=== PATIENT | male | born 1975 | race Caucasian/White ===

== ENCOUNTER → 2017-07-18 14:24 | Outpatient (CLI) | payer OTHER, SELFPAY ==
--- NOTE | 2017-07-16 | LES_PTH ---
PATIENT: BRYAN BRAY LOC: [facility] U#:[id number] AGE/SX: 49/M ROOM: RE07/18/[address]: Dr. Jesus Mercado MD : 1975 BED: DIS: SPEC #: [id number] RECD: 07/18/17 11:55 STATUS: GUZMAN DAVIS #: [id number] NAYAN: 07/16/17 00:[address]: Jesus Mercado DEPT: SURGICAL PATHOLOGY RECD BY: Shauna Lira Tissues: Skin of scalp, NOS Procedures: Surgery Specimen Level IV HEADER OPERATION: Shave biopsy right posterior parietal scalp PRE-OP DIAGNOSIS: Basal cell carcinoma vs benign nevus TISSUE SUBMITTED: Right posterior partial scalp MICROSCOPIC DIAGNOSIS Skin of right posterior scalp, shave biopsy: Basal cell carcinoma. AM:vineet 07/19/17 COMMENT The lesion extends to the deep margin of excision. Clinical correlation is suggested. Case has been reviewed in consultation with Dr. Boateng who concurs with the above diagnosis. IDC:SJ MICROSCOPIC DESCRIPTION Slides are reviewed. GROSS DESCRIPTION Received in fixative is one container labeled with the patient's name and designated posterior parietal scalp. The specimen consists of a discoid fragment of light griffin shave biopsy of hair bearing skin measuring 0.5 x 0.2 x <0.1 cm. The specimen is totally submitted in one cassette. / AM:vineet 07/18/17 TC:0 CPT: 23246
== END ==
PROVIDERS: Visit Provider Dermatology
DX: D48.5 Neoplasm of uncertain behavior of skin (principal)
CPT/HCPCS: 88305

== ENCOUNTER → 2018-05-10 06:16 | Outpatient (CLI) | payer OTHER, SELFPAY ==
[2018-05-10 07:34] LABS: Absolute Lymphocyte Count 1.85 X10^3/ul (0.83-4.51); Absolute Neutrophil Count 2.8 X10^3/uL (2.0-7.7); Basophil# 0.02 X10^3/uL; Basophil% 0.4 % (0-1); Eosinophil# 0.12 X10^3/uL; Eosinophils% 2.3 % (0-5); Hematocrit 43.6 % (40-54); Hemoglobin 14.7 g/dl (13.0-16.5); Lymphocyte # 1.85 X10^3/ul (4.0); Lymphocyte % 35.4 % (19-41); Mean Corp Hgb Conc 33.7 g/gl (32-36); Mean Corpuscular Hgb 31.3 pg (27.0-32.0); Mean Corpuscular Volume 92.8 fL (80-94); Mean Platelet Vol. 10.5 fl (6.2-12.0); Monocyte# 0.45 X10^3/uL; Monocyte% 8.6 % (0-10); Neutrophil # 2.78 X10^3/uL (2.7-7.7); Neutrophil % 53.3 % (47-70); Platelet Count 181 K/mm3 (150-450); RBC Distribution Width CV 12.2 % (11.6-14.6); RBC Distribution Width SD 41.3 fl (35.1-43.9); White Blood Count 5.2 K/mm3 (4.4-11.0)
[2018-05-10 07:35] LABS: POSITIVE COUNT NO; POSITIVE DIFFERENTIAL NO; POSITIVE MORPHOLOGY NO
[2018-05-10 07:56] LABS: ALB/GLOB Ratio 1.3 RATIO (0.9-2.4); AST(SGOT) 29 U/L (15-37); Alanine Aminotransfer ALT/SGPT 39 U/L (16-61); Albumin, Serum 3.9 g/dL (3.2-5.0); Alkaline Phosphatase 72 U/L (45-117); Anion Gap 6 (5-15); BUN 21 mg/dL (7-18); BUN/Creat Ratio 15.9 RATIO (10-20); Calcium,Total 8.6 mg/dL (8.5-10.1); Chloride 108 mmol/L (98-107); Cholesterol 139 mg/dL (200); Creatinine, Serum 1.32 mg/dL (0.70-1.30); EST Glomerular Filtration Rate 63 mL/min (>60); Est Glom Filt Rate - Afr Amer 77 mL/min (>60); Globulin 3.1 g/dL (2.2-4.2); Glucose 96 mg/dL (74-106); High Density Lipoprotein 35 mg/dL; Potassium 4.3 mmol/L (3.5-5.1); Sodium Level 141 mmol/L (136-145); Triglycerides 179 mg/dL; Very Low Density Lipoprotein 36 mg/dL (5-40)
== END ==
PROVIDERS: Family Provider Family Medicine; PCP Family Medicine; Referring Provider Family Medicine; Visit Provider Family Medicine
DX: Z00.00 Encounter for general adult medical examination without abnormal findings (principal)
CPT/HCPCS: 36415; 80053; 80061; 85025

== ENCOUNTER → 2018-10-17 08:21 | Outpatient (CLI) | payer SELFPAY | PROVIDERS: Family Provider Family Medicine; PCP Family Medicine; Referring Provider Nurse Practitioner Acute Care; Visit Provider Nurse Practitioner Acute Care | DX: E66.9 Obesity, unspecified (principal) | CPT/HCPCS: 74249 ==

== ENCOUNTER → 2019-04-17 11:37 | Outpatient (CLI) | payer SELFPAY | PROVIDERS: Family Provider Family Medicine; PCP Family Medicine; Referring Provider Nurse Practitioner Acute Care; Visit Provider Nurse Practitioner Acute Care | DX: Z09 Encounter for follow-up examination after completed treatment for conditions other than malignant neoplasm (principal) ==

== ENCOUNTER → 2019-05-23 06:26 | Outpatient (CLI) | payer OTHER, SELFPAY ==
[2018-10-07 11:20] VITALS: BMI 33.3
[2019-05-23 08:17] LABS: Absolute Lymphocyte Count 1.79 X10^3/uL (0.83-4.51); Absolute Neutrophil Count 2.3 X10^3/uL (2.0-7.7); Basophil# 0.03 X10^3/uL; Basophil% 0.6 % (0-1); Eosinophil# 0.11 X10^3/uL; Eosinophils% 2.3 % (0-5); Hematocrit 44.9 % (40-54); Hemoglobin 15.4 g/dL (13.0-16.5); Lymphocyte # 1.79 X10^3/ul (4.0); Lymphocyte % 36.8 % (19-41); Mean Corp Hgb Conc 34.3 g/dL (32-36); Mean Corpuscular Hgb 31.8 pg (27.0-32.0); Mean Corpuscular Volume 92.6 fL (80-94); Mean Platelet Vol. 10.7 fl (6.2-12.0); Monocyte# 0.59 X10^3/uL; Monocyte% 12.1 % (0-10); NRBC Flagged by Analyzer 0 % (0-5); Neutrophil # 2.32 X10^3/uL (2.7-7.7); Neutrophil % 47.8 % (47-70); Platelet Count 180 K/mm3 (150-450); RBC Distribution Width CV 11.9 % (11.6-14.6); RBC Distribution Width SD 40.7 fl (35.1-43.9); Red Blood Count 4.85 M/mm3 (4.6-6.2); White Blood Count 4.9 K/mm3 (4.4-11.0)
[2019-05-23 08:47] LABS: ALB/GLOB Ratio 1.2 RATIO (0.9-2.4); AST(SGOT) 28 U/L (15-37); Alanine Aminotransfer ALT/SGPT 48 U/L (16-61); Alkaline Phosphatase 71 U/L (45-117); Anion Gap 3 (5-15); BUN 18 mg/dL (7-18); BUN/Creat Ratio 14.2 RATIO (10-20); Calcium,Total 8.8 mg/dL (8.5-10.1); Chloride 106 mmol/L (98-107); Cholesterol 190 mg/dL (200); Creatinine, Serum 1.27 mg/dL (0.70-1.30); EST Glomerular Filtration Rate 66 mL/min (>60); Est Glom Filt Rate - Afr Amer 80 mL/min (>60); Globulin 3.3 g/dL (2.2-4.2); Glucose 88 mg/dL (74-106); High Density Lipoprotein 47 mg/dL; Potassium 4.2 mmol/L (3.5-5.1); Protein, Total 7.3 g/dL (6.4-8.2); Sodium Level 139 mmol/L (136-145); Triglycerides 149 mg/dL; Very Low Density Lipoprotein 30 mg/dL (5-40)
== END ==
PROVIDERS: Family Provider Family Medicine; PCP Family Medicine; Referring Provider Family Medicine; Visit Provider Family Medicine
DX: Z00.00 Encounter for general adult medical examination without abnormal findings (principal)
CPT/HCPCS: 36415; 80053; 80061; 85025

== ENCOUNTER → 2020-09-15 06:26 | Outpatient (CLI) | payer OTHER, SELFPAY ==
[2018-10-07 11:20] VITALS: BMI 33.3
[2020-09-15 07:17] LABS: Absolute Lymphocyte Count 1.76 X10^3/uL (0.83-4.51); Absolute Neutrophil Count 2.8 X10^3/uL (2.0-7.7); Basophil# 0.03 X10^3/uL; Basophil% 0.6 % (0-1); Eosinophils% 1.9 % (0-5); Hematocrit 46.1 % (40-54); Hemoglobin 15.6 g/dL (13.0-16.5); Lymphocyte # 1.76 X10^3/ul (4.0); Mean Corp Hgb Conc 33.8 g/dL (32-36); Mean Corpuscular Hgb 31.4 pg (27.0-32.0); Mean Corpuscular Volume 92.8 fL (80-94); Mean Platelet Vol. 10.8 fl (6.2-12.0); Monocyte# 0.63 X10^3/uL; Monocyte% 11.8 % (0-10); NRBC Flagged by Analyzer 0 % (0-5); Neutrophil # 2.81 X10^3/uL (2.7-7.7); Neutrophil % 52.5 % (47-70); Platelet Count 185 K/mm3 (150-450); RBC Distribution Width CV 11.9 % (11.6-14.6); RBC Distribution Width SD 40.8 fl (35.1-43.9); Red Blood Count 4.97 M/mm3 (4.6-6.2); White Blood Count 5.3 K/mm3 (4.4-11.0)
[2020-09-15 07:35] LABS: ALB/GLOB Ratio 1.2 RATIO (0.9-2.4); AST(SGOT) 28 U/L (15-37); Alanine Aminotransfer ALT/SGPT 69 U/L (16-61); Albumin, Serum 4.1 g/dL (3.2-5.0); Alkaline Phosphatase 63 U/L (45-117); Anion Gap 0 (5-15); BUN 29 mg/dL (7-18); BUN/Creat Ratio 19.6 RATIO (10-20); Calcium,Total 8.8 mg/dL (8.5-10.1); Chloride 105 mmol/L (98-107); Cholesterol 207 mg/dL (200); Creatinine, Serum 1.48 mg/dL (0.70-1.30); EST Glomerular Filtration Rate 55 mL/min (>60); Est Glom Filt Rate - Afr Amer 66 mL/min (>60); Globulin 3.5 g/dL (2.2-4.2); Glucose 89 mg/dL (74-106); High Density Lipoprotein 42 mg/dL; Potassium 4.1 mmol/L (3.5-5.1); Protein, Total 7.6 g/dL (6.4-8.2); Sodium Level 137 mmol/L (136-145); Triglycerides 143 mg/dL; Very Low Density Lipoprotein 29 mg/dL (5-40)
== END ==
PROVIDERS: PCP Family Medicine; Referring Provider Family Medicine; Visit Provider Family Medicine
DX: Z00.00 Encounter for general adult medical examination without abnormal findings (principal); E78.5 Hyperlipidemia, unspecified; R79.89 Other specified abnormal findings of blood chemistry
CPT/HCPCS: 36415; 80053; 80061; 85025

== ENCOUNTER → 2021-09-20 | Outpatient (CLI) | payer OTHER, SELFPAY ==
[2021-09-20 07:07] LABS: Absolute Neutrophil Count 2.7 X10^3/uL (2.0-7.7); Basophil# 0.01 X10^3/uL; Basophil% 0.2 % (0-1); Eosinophil# 0.12 X10^3/uL; Eosinophils% 2.4 % (0-5); Hematocrit 43.8 % (40-54); Hemoglobin 15.3 g/dL (13.0-16.5); Lymphocyte % 32.4 % (19-41); Mean Corp Hgb Conc 34.9 g/dL (32-36); Mean Corpuscular Hgb 31.7 pg (27.0-32.0); Mean Corpuscular Volume 90.7 fL (80-94); Mean Platelet Vol. 10.3 fl (6.2-12.0); Monocyte# 0.55 X10^3/uL; Monocyte% 11.1 % (0-10); NRBC Flagged by Analyzer 0 % (0-5); Neutrophil # 2.65 X10^3/uL (2.7-7.7); Neutrophil % 53.7 % (47-70); Platelet Count 175 K/mm3 (150-450); RBC Distribution Width CV 11.8 % (11.6-14.6); RBC Distribution Width SD 39.1 fl (35.1-43.9); Red Blood Count 4.83 M/mm3 (4.6-6.2); White Blood Count 4.9 K/mm3 (4.4-11.0)
[2021-09-20 07:46] LABS: ALB/GLOB Ratio 1.3 RATIO (0.9-2.4); AST(SGOT) 28 U/L (15-37); Alanine Aminotransfer ALT/SGPT 48 U/L (16-61); Albumin, Serum 4.1 g/dL (3.2-5.0); Alkaline Phosphatase 57 U/L (45-117); Anion Gap 3 (5-15); BUN 20 mg/dL (7-18); BUN/Creat Ratio 15.2 RATIO (10-20); Calcium,Total 8.7 mg/dL (8.5-10.1); Chloride 104 mmol/L (98-107); Cholesterol 178 mg/dL (200); Creatinine, Serum 1.32 mg/dL (0.70-1.30); EST Glomerular Filtration Rate 62 mL/min (>60); Est Glom Filt Rate - Afr Amer 75 mL/min (>60); Globulin 3.1 g/dL (2.2-4.2); Glucose 98 mg/dL (74-106); High Density Lipoprotein 40 mg/dL; Protein, Total 7.2 g/dL (6.4-8.2); Sodium Level 137 mmol/L (136-145); Triglycerides 164 mg/dL; Very Low Density Lipoprotein 33 mg/dL (5-40)
== END | disposition home or self-care (01) ==
PROVIDERS: PCP Family Medicine; Referring Provider Family Medicine; Visit Provider Family Medicine
DX: Z00.00 Encounter for general adult medical examination without abnormal findings (principal); E78.5 Hyperlipidemia, unspecified; R79.89 Other specified abnormal findings of blood chemistry
CPT/HCPCS: 36415; 80053; 80061; 85025

== ENCOUNTER → 2022-12-13 | Outpatient (CLI) | payer OTHER, SELFPAY ==
[2022-12-13 09:47] LABS: Absolute Neutrophil Count 2.9 X10^3/uL (2.0-7.7); Basophil# 0.03 X10^3/uL; Basophil% 0.6 % (0-1); Eosinophil# 0.11 X10^3/uL; Eosinophils% 2.1 % (0-5); Hemoglobin 15.3 g/dL (13.0-16.5); Lymphocyte % 33.8 % (19-41); Mean Corp Hgb Conc 34.8 g/dL (32-36); Mean Corpuscular Hgb 30.9 pg (27.0-32.0); Mean Corpuscular Volume 88.9 fL (80-94); Mean Platelet Vol. 10.2 fl (6.2-12.0); Monocyte# 0.49 X10^3/uL; Monocyte% 9.2 % (0-10); NRBC Flagged by Analyzer 0 % (0-5); Neutrophil # 2.89 X10^3/uL (2.7-7.7); Neutrophil % 54.1 % (47-70); Platelet Count 177 K/mm3 (150-450); RBC Distribution Width CV 12.1 % (11.6-14.6); RBC Distribution Width SD 39.5 fl (35.1-43.9); Red Blood Count 4.95 M/mm3 (4.6-6.2); White Blood Count 5.3 K/mm3 (4.4-11.0)
[2022-12-13 10:38] LABS: T3 Total - Triiodothyronine 0.99 ng/mL (0.6-1.81)
[2022-12-13 10:50] LABS: ALB/GLOB Ratio 1.2 RATIO (0.9-2.4); AST(SGOT) 24 U/L (15-37); Alanine Aminotransfer ALT/SGPT 41 U/L (16-61); Albumin, Serum 3.9 g/dL (3.2-5.0); Alkaline Phosphatase 62 U/L (45-117); Anion Gap 5 (5-15); BUN 17 mg/dL (7-18); BUN/Creat Ratio 12.5 RATIO (10-20); Calcium,Total 8.8 mg/dL (8.5-10.1); Chloride 107 mmol/L (98-107); Cholesterol 167 mg/dL (200); Creatinine, Serum 1.36 mg/dL (0.70-1.30); EST Glomerular Filtration Rate 60 mL/min (>60); Est Glom Filt Rate - Afr Amer 72 mL/min (>60); Globulin 3.3 g/dL (2.2-4.2); Glucose 88 mg/dL (74-106); High Density Lipoprotein 40 mg/dL; Potassium 4.1 mmol/L (3.5-5.1); Protein, Total 7.2 g/dL (6.4-8.2); Sodium Level 138 mmol/L (136-145); Thyroid Stim Hormone (TSH) 1.84 uIU/mL (0.358-3.74); Triglycerides 153 mg/dL; Very Low Density Lipoprotein 31 mg/dL (5-40)
[2022-12-14 16:09] LABS: Thyroglobulin Antibody < 1.0 IU/mL (0.0-0.9); Thyroid Peroxidase AB < 9 IU/mL (0-34)
== END | disposition home or self-care (01) ==
LOC: LAB.FUTURE 09:19 → PAVLAB 09:20
PROVIDERS: PCP Family Medicine; Referring Provider Family Medicine; Visit Provider Family Medicine
DX: Z00.00 Encounter for general adult medical examination without abnormal findings (principal); H05.20 Unspecified exophthalmos
CPT/HCPCS: 36415; 80053; 80061; 84439; 84443; 84480; 85025; 86376; 86800

== ENCOUNTER → 2022-12-28 | Outpatient (CLI) | payer OTHER, SELFPAY ==
--- NOTE | 2022-12-28 08:22 | MRI_ITS ---
EXAM: MR HEAD WITHOUT AND WITH INTRAVENOUS CONTRAST CLINICAL INDICATION: 6TH NERVE PALSY RT EYE TECHNIQUE: Multiplanar and multisequence MR images of the brain were obtained without and with intravenous contrast. CONTRAST: 25 mL of IV Clariscan. COMPARISON: No relevant prior studies available. FINDINGS: BRAIN AND EXTRA-AXIAL SPACES: Following IV contrast administration, there are no abnormally enhancing lesions intra-axially and extra-axially. No intra- or extra-axial hemorrhage. No evidence of acute infarct. No intracranial mass or mass effect. There is preservation of the cardenas/white matter interface. Posterior fossa structures are unremarkable. Ventricles are appropriate for age. No hydrocephalus. Basal cisterns are patent. No focal signal abnormalities throughout the brain parenchyma. SELLA: Unremarkable. Normal sella turcica, pituitary gland, infundibular stalk, optic chiasm and hypothalamus. AUDITORY SYSTEM: Unremarkable. The internal auditory canals are patent. BONES/JOINTS: Unremarkable. No discrete lytic or blastic abnormalities. SINUSES: Unremarkable as visualized. Clear. MASTOID AIR CELLS: Unremarkable as visualized. Clear. ORBITS: Unremarkable as visualized. Both globes, extraocular muscles, optic nerves and retrobulbar fat appear unremarkable. VASCULATURE: Mild dilatation of the left superior ophthalmic vein when compared to the right. These may be related to the multiple small flow voids in the cavernous sinuses worrisome for dural AV fistula. MRI/Brain W/WO Contrast IMPRESSION: 1. Abnormal cavernous sinuses containing multiple small flow voids around the cavernous carotid arteries and abnormal dilatation of the left superior ophthalmic vein more than the right superior ophthalmic vein. 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 Correlation with intraocular pressure will be helpful. 2. Normal MRI of the brain with and without contrast. COMMENT: Cerebral arteriogram with bilateral external carotid arteriogram will be very helpful for further evaluation. Electronically Signed: Gustavo Goodman MD at 10:43 EDT ,
--- NOTE | 2022-12-28 08:23 | MRI_ITS ---
STUDY: MRA OF THE HEAD WITHOUT CONTRAST REASON FOR EXAM: Male, 47 years old. 6TH NERVE PALSY RT EYE TECHNIQUE: 3-D zwqa-[id number]-[id number] (TOF) imaging was performed with MIPs. The study was performed unenhanced. COMPARISON: None. FINDINGS: Normal bilateral petrous carotid arteries. Normal right cavernous carotid artery with a normal supraclinoid bifurcation but is surrounded by multiple small vessels and visualization of the right cavernous sinus. Normal left cavernous carotid artery with a normal supraclinoid bifurcation but surrounded by multiple small vessels and visualization of the left cavernous sinus. There is dilatation of the left superior ophthalmic vein more than the right superior ophthalmic vein. Normal right A1 segment of the anterior cerebral artery. Normal left A1 segment of the anterior cerebral artery. Normal intact anterior communicating artery (ACOM). Normal bilateral A2 segments of the anterior cerebral arteries. Normal right M1 and M2 segments of the middle cerebral arteries, with a normal M1 bifurcation. Normal left M1 and M2 segments of the middle cerebral arteries, with a normal M1 bifurcation. Normal right posterior communicating artery (PCOM). Normal left posterior communicating artery (PCOM). Normal bilateral vertebral arteries. Normal basilar artery with a normal basilar bifurcation. The visualized bilateral superior cerebellar (SCA) arteries are normal. Normal bilateral P1, P2 and visualized P3 segments of the posterior cerebral arteries. There is no demonstrated aneurysm of the yocha dehe of [place]. There is no major vessel occlusion or hemodynamically significant stenosis. There is no demonstrated abnormality of the visualized brain. MRI/MRA Head ONLY without Contrast IMPRESSION: 1. Abnormal visualization of the cavernous sinuses with multiple small vessels around the normal cavernous segments of the internal carotid arteries. There is also dilatation of the left superior ophthalmic vein more than the right superior ophthalmic vein. 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 2. No suspicious intracranial aneurysm, saccular or fusiform type. COMMENT: Cerebral arteriogram with bilateral external carotid arteriogram will be very helpful for further evaluation. Electronically Signed: Gustavo Goodman MD at 10:47 EDT ,
== END | disposition home or self-care (01) ==
PROVIDERS: PCP Family Medicine; Referring Provider Family Medicine; Visit Provider Family Medicine
DX: H49.21 Sixth [abducent] nerve palsy, right eye (principal); H93.A3 Pulsatile tinnitus, bilateral
CPT/HCPCS: 70544; 70553; A9575

== ENCOUNTER 2023-05-08 09:20 | Day surgery (SDC) | payer OTHER, SELFPAY ==
[2023-05-08 09:50] VITALS: BP 123/73; PULSE 67; RESP 18; TEMP 36.6; O2SAT 98; BMI 34.0
[2023-05-08] MEDS: Lactated Ringers 1,000 ML 15 ML IV (09:55)
--- NOTE | 2023-05-08 10:30 | EGD_PTH ---
PATIENT: BRYAN BRAY LOC: EN U#:[id number] AGE/SX: 47/M ROOM: RE05/08/[address]: Dr. Jayjay Miramontes MD : 1975 BED: DIS: 05/08/2023 SPEC #: [id number] RECD: 05/08/23 13:09 STATUS: GUZMAN DAVIS #: [id number] NAYAN: 05/08/23 10:[address]: Jayjay Miramontes DEPT: SURGICAL PATHOLOGY RECD BY: Taryn Washington ENTERED: 05/08/23 13:32 SP TYPE: EGD BIOPSY OTHR DR: Dr. Jose Dias DO Tissues: A - Gastric mucous membrane B - Esophagus, NOS C - Esophagus, NOS Procedures: Special Stain Group II Surgery Specimen Level IV Alcian Blue/PAS (control) HEADER OPERATION: EGD, biopsy PRE-OP DIAGNOSIS: GERD TISSUE SUBMITTED: A - Antrum biopsy for histo and H. pylori, B - Gastroesophageal junction biopsy, C - Proximal esophagus biopsy MICROSCOPIC DIAGNOSIS A. Gastric antrum, biopsy: Chronic gastritis. See comment. B. Gastroesophageal junction, biopsy: Chronic inflammation. No evidence of goblet cell metaplasia. See comment. C. Proximal esophagus, biopsy: Gastroesophageal junctional mucosa with chronic inflammation. Rare fragments of benign superficial squamous mucosa. No evidence of goblet cell metaplasia. See comment. AM:vineet 05/09/2023 COMMENT A. The results of immunohistochemistry for Helicobacter pylori will be reported separately ([id number]). B & C. Alcian blue/PAS stain with matched control supports the above diagnosis. MICROSCOPIC DESCRIPTION Slides are reviewed. GROSS DESCRIPTION A - Received in fixative is one container labeled with the patient's name and designated antrum biopsy. The specimen consists of two irregular fragments of light griffin soft tissue that in aggregate measure 0.7 x 0.2 x 0.1 cm. The specimen is totally submitted in one cassette. B - Received in fixative is one container labeled with the patient's name and designated GE junction. The specimen consists of two irregular fragments of light griffin soft tissue that in aggregate measure 0.8 x 0.3 x 0.1 cm. The specimen is totally submitted in one cassette. C - Received in fixative is one container labeled with the patient's name and designated proximal esophagus. The specimen consists of two irregular fragments of light griffin soft tissue that in aggregate measure 0.6 x 0.6 x 0.1 cm. The specimen is totally submitted in one cassette. / AM:vineet 05/08/2023 TC:3 CPT: 21596 x3, 74037 x2
--- NOTE | 2023-05-08 10:30 | IMM_PTH ---
PATIENT: BRYAN BRAY LOC: EN U#:[id number] AGE/SX: 47/M ROOM: RE05/08/[address]: Dr. Jayjay Miramontes MD : 1975 BED: DIS: 05/08/2023 SPEC #: [id number] RECD: 05/08/23 13:40 STATUS: GUZMAN REDeshawn #: [id number] NAYAN: 05/08/23 10:[address]: Jayjay Miramontes DEPT: IMMUNOHISTOCHEMISTRY RECD BY: Shauna Lira ENTERED: 05/08/23 13:41 SP TYPE: IMMUNO OTHR DR: Dr. Jose Dias DO Tissues: A - Stomach, NOS Procedures: H Pylori (initial) PHYSICIAN & INSTITUTION [place] [id number] SPECIMEN INFORMATION: Tissue Source: A - Antrum Clinical Info: GERD Specimen Number: [id number] CPT code: 93458 METHODOLOGY: Deparaffinized sections of prefer/formalin-fixed tissue or PAP/DQ stained slides are incubated with monoclonal/polyclonal antibodies/oligonucleotide probes. Localization is made via biotin free immunoperoxidase method. Appropriate controls are performed and reacted as expected. Results on target cell population are indicated in the following table: RESULTS: ANTIBODY / CLONE RESULT Block A H Pylori (polyclonal) negative These tests were developed and their performance characteristics determined by [facility]. They may not have been cleared or approved by the U.S. Food and Drug Administration. The FDA has determined that such clearance or approval is not necessary. The above immunohistochemical/dualISH markers are ordered and reviewed by the Pathologist. INTERPRETATION: A. Antrum, biopsy: Negative for Helicobacter pylori organisms. AM:vineet 05/09/2023
--- NOTE | 2023-05-08 10:37 | PCM.HP.BLA ---
History and Physical Date of Admission: 05/08/23 ADDENDUM by Kathryn Jiménez on 03/29/23 at 1030 Intake Chief Complaint: GERD Allergies No Known Allergies Allergy (Verified 03/28/23 14:41) Medications omeprazole 40 mg capsule,delayed release mg PO 03/28/23 [History Confirmed 03/28/23] pravastatin 40 mg tablet mg PO 03/28/23 [History Confirmed 03/28/23] Assessment and Plan Assessment and Plan (1) GERD (gastroesophageal reflux disease): Status: Acute Qualifiers: Esophagitis presence: esophagitis presence not specified Qualified Code(s): K21.9 - Gastro-esophageal reflux disease without esophagitis Orders: Orders EGD 03/28/23 03/29/23 1609 <Electronically signed by Jayjay Miramontes MD> Date Jayjay Miramontes MD cc: Dr. Jose Dias, DO ~* Signed Intake Vital Signs 03/28/2314:40 BP 115/75 Blood Pressure Location Lt brachial Position Sitting Respiration 17 Pulse 87 Pulse Source NIBP Temp 98.3 F Temp Source Temporal Pulse Oximetry (%) 95 Oxygen Delivery Method room air Intake Visit Reasons: DISCUSS EGD Chief Complaint: GERD Disease Education Specialist Required: No Is patient in pain?: No Allergies No Known Allergies Allergy (Verified 03/28/23 14:41) Medications omeprazole 40 mg capsule,delayed release mg PO 03/28/23 [History Confirmed 03/28/23] pravastatin 40 mg tablet mg PO 03/28/23 [History Confirmed 03/28/23] [facility] Medical History (Updated 03/28/23 @ 16:[address] Jayjay Miramontes MD) GERD (gastroesophageal reflux disease) Surgical History (Updated 03/28/23 @ 14:40 by Kathryn Jiménez) Carotid-cavernous sinus fistula (~02/2023) History of colonoscopy (~09/2021) Social History (Updated 03/28/23 @ 14:40 by Kathryn Jiménez) Smoking Status: Never smoker alcohol intake: never substance use type: does not use HPI HPI HPI: Patient is a 47-year-old male here with chronic GERD. He reports that if he does not take his omeprazole for 3 days he starts having symptoms. He denies blood in his stool. He has never had an EGD. ROS General General: No weight change, appetite, fatigue, colon cancer, breast cancer or weakness HEENT HEENT: No difficulty swallowing, eye injury, eye surgery, swollen glands or hoarseness Endo Endocrine: No thyroid disease, diabetes mellitus, thyroid cancer, Hair loss, heat intolerance or cold intolerance Musc Musculoskeletal: No back problems, arthritis, rheumatoid arthritis, gout or joint pain Cardio Cardiovascular: No murmur, pacemaker, heart disease, atrial fibrillation, high blood pressure, heart attack, heart stent, palpitations, shortness of breat with exertion or chest pain Psych Psychiatric: No depression, anxiety or hearing voices Resp Respiratory: No shortness of breath, No sleep apnea, No cough, No COPD, No asthma, No emphysema and No wheezing Gastro Gastrointestinal: No abdominal pain, No nausea or vomiting, No diarrhea, No constipation, No blood in stool, Yes acid reflux, No hemorrhoids, No ulcers, No gallbladder problem and No black,tarry stools James Hematologic: No blood thinners, No blood disorders, No bleeding, No anemia and No blood clots Neuro Neurologic: No weakness Exam Const General: cooperative Orientation: alert and oriented x3 HENMT Head: normal to inspection Neck Neck: normal visual inspection and full ROM Chest Chest palpation & inspection: normal inspection of the chest Resp Effort & Inspection: normal respiratory effort Auscultation: clear to auscultation bilaterally Cardio Rate: regular rate Rhythm: regular rhythm GI Inspection: non-distended Palpation: soft and nontender Skin General: no rashes or lesions noted Neuro General: patient alert and patient oriented x3 Extrem General: full ROM Psych Appearance: grossly normal Mental Status: mental status grossly normal Assessment and Plan Assessment and Plan (1) GERD (gastroesophageal reflux disease): Status: Acute Qualifiers: Esophagitis presence: esophagitis presence not specified Qualified Code(s): K21.9 - Gastro-esophageal reflux disease without esophagitis Plan: Patient has chronic GERD which is controlled with his medication but without medications he has severe GERD. He has had this for a long time and he has been on a PPI for 5 years. I recommend EGD for evaluation. I explained endoscopy in detail to the patient. I explained the risks including but not limited to stroke or heart attack with anesthesia, perforation of the GI tract, bleeding, infection. I explained that any of these could necessitate further emergency surgery. The patient understands and all questions were answered sufficiently. The patient wishes to proceed with procedure. Jayjay Miramontes MD Pager: [facility] [address] [place] [address], [address] [place] [address] Office: I have examined the patient and the H&P has been reviewed. There are no clinical changes since date of exam.
--- NOTE | 2023-05-08 11:01 | OP.EGD_ITS ---
Patient Name: Duc Valenzuela Procedure Date: 05/08/2023 10:44 AM Date of : 1975 Age: 47 Procedure: Upper GI endoscopy Indications: Heartburn, Esophageal reflux Providers: Jayjay Miramontes MD Referring MD: Jose Dias Medicines: Monitored Anesthesia Care Patient Profile: This is a 47 year old male. Refer to note in patient chart for documentation of history and physical. Complications: No immediate complications. Estimated blood loss: Minimal. Procedure: Pre-Anesthesia Assessment: - Prior to the procedure, a History and Physical was performed, and patient medications and allergies were reviewed. The patient's tolerance of previous anesthesia was also reviewed. The risks and benefits of the procedure and the sedation options and risks were discussed with the patient. All questions were answered, and informed consent was obtained. Prior Anticoagulants: The patient has taken no anticoagulant or antiplatelet agents. After reviewing the risks and benefits, the patient was deemed in satisfactory condition to undergo the procedure. After obtaining informed consent, the endoscope was passed under direct vision. Throughout the procedure, the patient's blood pressure, pulse, and oxygen saturations were monitored continuously. The gastroscope was introduced through the mouth, and advanced to the fourth part of duodenum. The upper GI endoscopy was accomplished without difficulty. The patient tolerated the procedure well. Scope In: 10:48:58 AM Scope Out: 10:56:09 AM Total Procedure Duration Time 0 hours 7 minutes 11 seconds Findings: Tongues of salmon-colored mucosa were present. Biopsies were taken with a cold forceps for histology. There were esophageal mucosal changes suspicious for short-segment Whittaker's esophagus present at the gastroesophageal junction. Mucosa was biopsied with a cold forceps for histology. The stomach was normal. Biopsies were taken with a cold forceps in the gastric antrum for Helicobacter pylori testing. The examined duodenum was normal. Impression: - Ararat-colored mucosa suspicious for short-segment Whittaker's esophagus. Biopsied. - Esophageal mucosal changes suspicious for short-segment Whittaker's esophagus. Biopsied. - Normal stomach. - Normal examined duodenum. - Biopsies were taken with a cold forceps for Helicobacter pylori testing. Recommendation: - Discharge patient to home. - Resume previous diet. - Continue present medications. - Await pathology results. Procedure Code(s): --- Professional --- 69369, Esophagogastroduodenoscopy, flexible, transoral; with biopsy, single or multiple Diagnosis Code(s): --- Professional --- K22.89, Other specified disease of esophagus R12, Heartburn K21.9, Gastro-esophageal reflux disease without esophagitis CPT copyright 2021 [employer] [place] [employer]. All rights reserved. The codes documented in this report are preliminary and upon medical radiation therapist review may be revised to meet current compliance requirements. Jayjay Miramontes MD 05/08/2023 11:01:17 AM This report has been signed electronically. Number of Addenda: 0 Note Initiated On: 05/08/2023 10:44 AM
[2023-05-08 11:02] VITALS: BP 102/77; BP 123/73; PULSE 78; RESP 20; TEMP 36.4; O2SAT 90
--- NOTE | 2023-05-08 11:02 | OP.CCLET_ITS ---
05/08/2023 Jose Dias [address] [place] [address] Re : Upper GI endoscopy procedure for Duc Valenzuela Dear Dr. Dias This procedure was performed on Monday, May 08, 2023. My impressions and recommendations are as follows: Impressions : - Bloomer-colored mucosa suspicious for short-segment Whittaker's esophagus. Biopsied. - Esophageal mucosal changes suspicious for short-segment Whittaker's esophagus. Biopsied. - Normal stomach. - Normal examined duodenum. - Biopsies were taken with a cold forceps for Helicobacter pylori testing. Recommendations : - Discharge patient to home. - Resume previous diet. - Continue present medications. - Await pathology results. My findings are described in the full procedure note, which is enclosed. If I can be of further assistance, please feel free to contact me at Doctor phone number(s): , Work: . Sincerely, Jayjay Miramontes MD 05/08/2023 11:01:17 AM This report has been signed electronically.
[2023-05-08 11:05] VITALS: BP 122/79; BP 123/73; PULSE 68; RESP 18; O2SAT 95
[2023-05-08 11:09] VITALS: BP 120/64; BP 123/73; PULSE 63; RESP 14; O2SAT 96
[2023-05-08 11:14] VITALS: BP 123/73; BP 98/78; PULSE 66; RESP 18; TEMP 36.9; O2SAT 97
[2023-05-08 11:35] VITALS: BP 123/73
== END 2023-05-08 11:41 | disposition home or self-care (01) ==
LOC: EN 09:21 → AC 09:22
PROVIDERS: PCP Family Medicine; Referring Provider Family Medicine; Visit Provider Surgery
PROC: 0DJ08ZZ Inspection of Upper Intestinal Tract, Via Natural or Artificial Opening Endoscopic (ICD-10-PCS; CPT 43235; principal; 2023-05-08 10:25)
DX: K29.50 Unspecified chronic gastritis without bleeding (principal); K21.9 Gastro-esophageal reflux disease without esophagitis; K22.89 Other specified disease of esophagus
CPT/HCPCS: 43239; 88305; 88313; 88342; J7120

== ENCOUNTER → 2023-05-08 | Outpatient (CLI) | payer OTHER, SELFPAY ==
--- NOTE | 2023-05-08 13:43 | VDLE_ITS ---
Reason For Study: R/O DVT RIGHT LEFT GSV is normal. GSV is normal. Acute deep vein thrombosis is noted in the CFV is compressible, spontaneous, phasic, CFV. It is dilated and NONCOMPRESSIBLE. competent, and demonstrates normal FV is patent and compressible. augmentation. POP V is patent and compressible. FV is compressible, spontaneous, phasic, T/P Trunk is compressible. competent and demonstrates normal PTV is compressible. augmentation. RT PerV is compressible. Acute deep vein thrombosis is noted in the Procedure POP V. It is dilated and NONCOMPRESSIBLE. This is a venous duplex using B-mode, color Acute deep vein thrombosis is noted in the flow and spectral Doppler. T/P Trunk. It is dilated and NONCOMPRESSIBLE. Exam performed in department. Acute deep vein thrombosis is noted in the The exam was diagnostic. PTV. It is dilated and NONCOMPRESSIBLE. A preliminary report was called and/or faxed LT PerV is compressible. to Dr. Dias's Office/ [facility]. VL/Venous Duplex US, Unilateral Interpretation Summary Acute deep vein thrombosis is noted in the right common femoral vein. Acute deep vein thrombosis is noted in the left popliteal vein, tibioperoneal t runk vein, posterior tibial vein Ordering Physician: Jose Dias Referring Physician: Jose Dias Performed By: Puma Qureshi, RVT
== END | disposition home or self-care (01) ==
LOC: CVS 13:42
PROVIDERS: PCP Family Medicine; Referring Provider Family Medicine; Visit Provider Family Medicine
DX: R60.0 Localized edema (principal)
CPT/HCPCS: 93971